=== PATIENT | female | born 1960 | race Asian ===

== ENCOUNTER → 2017-02-26 | Outpatient (CLI) | payer OTHER ==
[~2017-02-26] MED LIST: ANTIVERT PO; CIPRO PO; DARVOCET-N 1001 TAB PO; KETOPROFEN PO; NEXIUM PO; PREMARIN PO; PREVACID PO; REGLAN PO; SYNTHROID PO
--- NOTE | ~2017-02-26 | MY11 ---
[facility] A Service of [facility] & [facility] [place] RADIOLOGY TEXT RESULTS PATIENT: AMINA GARAY LOCATION: [facility] : 56 UNIT #: [id number] AGE: [address]: Jessica Christina MD SEX: F ORDER DR: [id number] [facility] [address] [place], [place] [address] [id number] O MR#: [id number] Acc #: [id number] NAME: AMINA GARAY : 1960 SEX: F STUDY DATE/TIME: 02/26/2017 7:32 UNIT: [facility] ROOM: STUDY DESCRIPTION: MY Mammogram Screening Dig Sven Attending Physician: Jessica Christina M.D. Referring Physician: Jessica Christina M.D. Ordering Physician: Jessica Christina M.D. Primary Care Physician: Jessica Christina M.D. MEDICAL IMAGING REPORT This report is preliminary unless electronic signature is present EXAM Digital screening mammogram, 02/26/2017 HISTORY 56-year-old woman no risk elevation. Annual screening. COMPARISON Mammograms date to 10/25/2007 with most recent 10/05/2014. FINDINGS Digital imaging of each breast was completed utilizing a two-view examination of each breast in craniocaudal and mediolateral-oblique projections. Review and interpretation of digital mammograms include a second review in conjunction with FDA-approved CAD device. There is a normal parenchymal presentation bilaterally consistent with the patient's age. There are no breast masses imaged and no parenchymal asymmetry is visualized. There are no suspicious microcalcifications and I see no focal architectural disturbance. IMPRESSION Negative screening digital mammogram. One-year followup recommended. Patients over the age of 40 are entered into a reminder system with target due date for the next mammogram. A result letter will also be sent to the patient. BIRADS: 1 Negative Dictated by... Davy Weathers M.D. THIS IS AN ELECTRONICALLY VERIFIED REPORT Davy Weathers M.D. at 02/26/2017 12:12 PM [facility] A Service of [facility] & [facility] [place] RADIOLOGY TEXT RESULTS PATIENT: AMINA GARAY LOCATION: [facility] : 56 UNIT #: [id number] AGE: [address]: Jessica Christina MD SEX: F ORDER DR: Shea TD: 02/26/2017 09:17 JOB #: [id number] MEDICAL IMAGING REPORT Page 1 of 1 COPY
== END | disposition home or self-care (01) ==
LOC: CWCC 07:17
DX: Z12.31 Encounter for screening mammogram for malignant neoplasm of breast (principal)
CPT/HCPCS: G0202